=== PATIENT | female | born 1985 | race Hispanic/Latino ===

== ENCOUNTER 2022-10-30 11:19 | Emergency (ER) | payer SELFPAY ==
[2022-10-30] MEDS ORDERED: Loperamide HCl 2 MG CAP ONE (11:44)
[2022-10-30] MEDS ORDERED: Dicyclomine 10 MG CAP ONE (11:44)
== END 2022-10-30 12:10 | disposition home or self-care (01) ==
LOC: MADERS 11:19
DX: K52.9 Noninfective gastroenteritis and colitis, unspecified (principal)
CPT/HCPCS: 99283

== ENCOUNTER 2023-11-20 20:59 | Emergency (ER) | payer SELFPAY ==
[2023-11-20] MEDS ORDERED: diphenhydrAMINE 25 MG CAP ONE (21:29)
[2023-11-20] MEDS ORDERED: AMOXicillin 250 MG CAP ONE (21:29)
[2023-11-20] MEDS ORDERED: Ibuprofen 600 MG TAB ONE (21:29)
== END 2023-11-20 22:19 | disposition home or self-care (01) ==
LOC: MADERS 20:59
DX: G44.009 Cluster headache syndrome, unspecified, not intractable (principal); K02.9 Dental caries, unspecified
CPT/HCPCS: 99283